=== PATIENT | female | born 1990 | race African-American/Black ===

== ENCOUNTER 2018-10-31 10:34 | Emergency (ER) | payer OTHER ==
[~2018-10-31] VITALS: Ht 165.1 cm; Wt 90.7 kg
[~2018-10-31 10:34] MED LIST: ALPR0.25 PO; METO10TA81 PO; OMEP20TA63 PO; ONDA4TAB10 PO; ONDA4TAB10 SL; ONDA8TAB12 PO; POTA10TA12 PO
[2018-10-31 10:54] VITALS: BP 134/79
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
--- NOTE | 2018-10-31 11:27 | RAD ---
3 view study of the left hand Clinical indications: Puncture wound and swelling of the dorsal aspect of the left hand FINDINGS: Dorsal soft tissue swelling is seen. No soft tissue air or radiopaque foreign body is evident. No acute fracture or dislocation or lytic process is seen. IMPRESSION: Dorsal soft tissue swelling. No acute fracture. Electronically signed by: Jamel Crane MD (10/31/2018 11:24 AM) [facility]
[2018-10-31] MEDS ORDERED: HYDR-3164 PO (11:43)
[2018-10-31] MEDS ORDERED: NEOMY/BACITR/POLYMYXIN OINT PACKET. TP ONE ×2 (11:51→12:30)
[2018-10-31] MEDS ORDERED: BACITRACIN TOPICAL OINT PACKET. TP ONE (12:30)
== END 2018-10-31 11:57 | disposition home or self-care (01) ==
LOC: ER 10:34
DX: S60.222A Contusion of left hand, initial encounter (principal); F31.9 Bipolar disorder, unspecified; F20.9 Schizophrenia, unspecified; Z88.2 Allergy status to sulfonamides; Z88.8 Allergy status to other drugs, medicaments and biological substances; Y04.0XXA Assault by unarmed brawl or fight, initial encounter; Y93.89 Activity, other specified; Y92.89 Other specified places as the place of occurrence of the external cause; Y99.8 Other external cause status
CPT/HCPCS: 73130; 99284

== ENCOUNTER 2019-04-12 06:28 | Emergency (ER) | payer OTHER ==
[~2019-04-12] VITALS: Ht 165.1 cm; Wt 90.0 kg
[~2019-04-12 06:28] MED LIST changes: +HYDR-3164 PO
[2019-04-12 06:40] VITALS: BP 138/94
[2019-04-12] MEDS ORDERED: HYDROcodone/APAP 5/325MG 1 TAB TABLET PO ONE (07:00)
[2019-04-12] MEDS ORDERED: ACETAMINOPHEN 325 MG TABLET. PO ONE (07:00)
--- NOTE | 2019-04-12 07:01 | PHYS DOC ---
Past Medical History Past Medical History: Anxiety, Bipolar, Depression, Schizophrenia, Other Additional Past Medical Histor: palpitations Past Surgical History: , Other Additional Past Surgical Histo: wisdom tooth extraction Alcohol Use: Occasionally Drug Use: None Adult General Chief Complaint Chief Complaint: FLU SYMPTOM [facility] HPI Patient is a 28 year old female with history of schizophrenia, bipolar, anxiety and depression, palpitation who presents with complaint of cough and congestion. Patient complaining of sudden onset of nasal congestion and nonproductive cough that started less than 48 hours ago associated with nausea and chest soreness during episodes of cough,chills and subjective fever, nausea and palpitation. Patient states she gets anxious and feels shortness of breath. 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 Patient denies vomiting, diarrhea, urinary symptoms, . Review of Systems Review of Systems Constitutional: Reports subjective fever and chills Eyes: Denies change in visual acuity, redness, or eye pain [] HENT: Reports nasal congestion and sore throat Respiratory: Coarse cough and shortness of breath Cardiovascular: No additional information not addressed in HPI [] GI: Denies abdominal pain, vomiting, bloody stools or diarrhea marked reports nausea[] : Denies dysuria or hematuria [] Musculoskeletal: Denies back pain or joint pain [] Integument: Denies rash or skin lesions [] Neurologic: Denies headache, focal weakness or sensory changes [] Endocrine: Denies polyuria or polydipsia [] All other systems were reviewed and found to be within normal limits, except as documented in this note. Current Medications Current Medications Current Medications Medications (Trade) Dose Ordered Sig/Bell Start Time Stop Time Status Last Admin Dose Admin Acetaminophen (Tylenol) 650 mg 1X ONCE 04/12/19 07:00 04/12/19 07:01 DC 04/12/19 07:05 650 MG Acetaminophen/ Hydrocodone Bitart (Lortab 5/325) 1 tab 1X ONCE 04/12/19 07:00 04/12/19 07:01 DC 04/12/19 07:05 1 TAB Allergies Allergies Allergies Coded Allergies Type Severity Reaction Last Updated Verified Sulfa (Sulfonamide Antibiotics) Allergy Intermediate HOT FLASHES 11/05/14 No lurasidone Allergy Intermediate HIVES 09/28/15 Yes Physical Exam Physical Exam Constitutional: Well nourished, mild distress, non-toxic appearance, temperature 100.2. [] HENT: Normocephalic, atraumatic, bilateral external ears normal, oropharynx moist, pharyngeal erythema, no oral exudates, nose normal. [] Eyes: PERRLA, EOMI, conjunctiva normal, no discharge. [] Neck: Normal range of motion, no tenderness, supple, no stridor. [] Cardiovascular: Tachycardia, no murmur [] Lungs & Thorax: Bilateral breath sounds clear to auscultation [] Abdomen: Bowel sounds normal, soft, no tenderness, no masses, no pulsatile masses. [] Skin: Warm, dry, no erythema, no rash. [] Back: No tenderness, no CVA tenderness. [] Extremities: No tenderness, no cyanosis, no clubbing, ROM intact, no edema. [] Neurologic: Alert and oriented X 3, normal motor function, normal sensory function, no focal deficits noted. [] Psychologic: Affect anxious, judgement normal, mood normal. [] Current Patient Data Vital Signs Vital Signs Date Time Temp Pulse Resp B/P (MAP) Pulse Ox O2 Delivery O2 Flow Rate FiO2 04/12/19 07:05 20 04/12/19 06:40 100.2 104 138/94 (109) 96 100.2 Lab Values Laboratory Tests Test 04/12/19 06:42 Influenza Type A Antigen Positive (NEGATIVE) Influenza Type B Antigen Negative (NEGATIVE) EKG EKG [] Radiology/Procedures Radiology/Procedures [] Course & Med Decision Making Course & Med Decision Making Pertinent Labs reviewed. (See chart for details) Evaluation of patient showed 28-year-old female patient with flulike symptom less than 48 hours with positive influenza A. Patient felt better with Tylenol and Agenda given in ER. Prescription for Tamiflu was given. I've spoken with the patient and/or caregivers. I've explained the patient's condition, diagnosis and treatment plan based on information available to me at this time. I've answered the patient's and/or caregivers questions and addressed any concerns. The patient and/or caregivers have a good understanding the patient's diagnosis, condition and treatment plan as can be expected at this point. Vital signs have been stabilized. The patient's condition is stable for discharge from the emergency department. The patient will pursue further outpatient evaluation with her primary care provider or other designated consulting physician as outlined in the discharge instructions. Patient and/or caregivers are agreeable to this plan of care and follow-up instructions have been explained in detail. The patient and/or caregivers have received these instructions in written format and expressed understanding of these discharge instructions. The patient and her caregivers are aware that if any significant change in condition or worsening of symptoms should prompt him to immediately return to this of the closest emergency department. If an emergent department is not readily available I would encourage him to call 911. Ana María Disclaimer Dragbrent Disclaimer This electronic medical record was generated, in whole or in part, using a voice recognition dictation system. Departure Departure Impression: Primary Impression: Influenza A Additional Impression: Anxiety Disposition: HOME, SELF-CARE (at 0 [phone]) Condition: IMPROVED Referrals: NO PCP (PCP) Patient Instructions: Anxiety and Panic Attacks, Fever, Adult, Influenza A (H1N1) Additional Instructions: Drink plenty of liquids Follow-up with your primary care physician in 3-5 days Return to ER if not getting better Alternate Tylenol and ibuprofen every 4 hours as needed for fever and pain Thank you for visiting [facility]. We appreciate you trusting us with your care. If any additional problems come up don't hesitate to return to visit us. Please follow up with your primary care provider so they can plan additional care if needed and know about the problem that you had. If symptoms worsen come back to the Emergency Department. Any concerning symptoms that start such as chest pain, shortness of air, weakness or numbness on one side of the body, running high fevers or any other concerning symptoms return to the ER. Scripts Benzonatate (TESSALON PERLE) 100 Mg Capsule 1 CAP PO TID for cough, #21 CAP Prov: BRYON MORIN MD 04/12/19 Oseltamivir Phosphate (TAMIFLU) 75 Mg Capsule 1 CAP PO BID, #10 CAP Prov: BRYON MORIN MD 04/12/19 Hydrocodone/Apap 5-325 (NORCO 5-325 TABLET) 1 Each Tablet 1 TAB PO PRN Q6HRS PRN for PAIN, #12 TAB 0 Refills Prov: BRYON MORIN MD 04/12/19 Problem Qualifiers BRYON MORIN MD Apr 12, 2019 07:01
[2019-04-12 07:21] LABS: INFLUENZA A PATIENT POSITIVE (NEGATIVE); INFLUENZA B PATIENT NEGATIVE (NEGATIVE)
[2019-04-12] MEDS ORDERED: HYDR-3164 PO (07:26)
[2019-04-12] MEDS ORDERED: OSEL75CA PO (07:26)
[2019-04-12] MEDS ORDERED: BENZ100C PO (07:26)
== END 2019-04-12 07:32 | disposition home or self-care (01) ==
LOC: ER 06:28
DX: J10.1 Influenza due to other identified influenza virus with other respiratory manifestations (principal); R11.0 Nausea; R00.2 Palpitations; R07.89 Other chest pain; F41.9 Anxiety disorder, unspecified; F32.9 Major depressive disorder, single episode, unspecified; F20.9 Schizophrenia, unspecified; Z98.890 Other specified postprocedural states; Z88.4 Allergy status to anesthetic agent
CPT/HCPCS: 87804; 99284

== ENCOUNTER 2019-07-05 03:20 | Emergency (ER) | payer OTHER ==
[~2019-07-05] VITALS: Ht 165.1 cm; Wt 86.4 kg
[~2019-07-05 03:20] MED LIST changes: +BENZ100C PO; +OSEL75CA PO
[2019-07-05] MEDS ORDERED: fentaNYL PF VIAL 100 MCG/2 ML VIAL IVP ONE (03:30)
[2019-07-05] MEDS ORDERED: ONDANSETRON PF 4 MG/2 ML VIAL. IVP ONE (03:30)
--- NOTE | 2019-07-05 03:35 | PHYS DOC ---
Past Medical History Past Medical History: Anxiety, Bipolar, Depression, Schizophrenia, Other Additional Past Medical Histor: palpitations Past Surgical History: , Other Additional Past Surgical Histo: wisdom tooth extraction Smoking Status: Never Smoker Alcohol Use: Occasionally Drug Use: None General Adult EDM: Chief Complaint: HEAD, FACE, NECK, TRAUMA HPI: HPI: Patient is a 28 year old female who presents after falling 1 going down stairs at home. Patient indicates that she had been sleepwalking and was about retirement down stairs when she woke up and fell. Patient states that she hit the back of her head and now has head, neck and jaw pain. A shunt rates pain at a 9 out of 10. She denies any loss of consciousness. Patient states that pain is worsened in her neck with movement. She denies any back or extremity pain. Patient states that fall occurred about 1:30 AM.[] Review of Systems: Review of Systems: Constitutional: Denies fever or chills. [] Eyes: Denies change in visual acuity. [] Respiratory: Denies cough or shortness of breath. [] Cardiovascular: Denies chest pain or edema. [] GI: Denies abdominal pain, nausea, vomiting or diarrhea. [] Musculoskeletal: Complains of neck and jaw pain. [] Neurologic: Complains of headache without focal weakness or sensory changes. [] A full 10 point review of systems has been reviewed and is otherwise negative. Heart Score: Risk Factors: Risk Factors: DM, Current or recent (<one month) smoker, HTN, HLP, family history of CAD, obesity. Risk Scores: Score 0 - 3: 2.5% MACE over next 6 weeks - Discharge Home Score 4 - 6: 20.3% MACE over next 6 weeks - Admit for Clinical Observation Score 7 - 10: 72.7% MACE over next 6 weeks - Early Invasive Strategies Current Medications: Current Medications Medications (Trade) Dose Ordered Sig/Bell Start Time Stop Time Status Last Admin Dose Admin Fentanyl Citrate (Fentanyl 2ml Vial) 50 mcg 1X ONCE 07/05/19 03:30 07/05/19 03:31 Ondansetron HCl (Zofran) 4 mg 1X ONCE 07/05/19 03:30 07/05/19 03:31 Allergies: Allergies: Allergies Coded Allergies Type Severity Reaction Last Updated Verified Sulfa (Sulfonamide Antibiotics) Allergy Intermediate HOT FLASHES 11/05/14 No lurasidone Allergy Intermediate HIVES 09/28/15 Yes Physical Exam: PE: Constitutional: Well developed, well nourished, no acute distress, non-toxic appearance. [] HENT: Normocephalic, with hematoma noted to the right parieto-occipital region of scalp, bilateral external ears normal, oropharynx moist, no oral exudates, nose normal. [] Eyes: PERRLA, EOMI, conjunctiva normal, no discharge. [] Neck: Normal range of motion, with bilateral suboccipital tenderness, supple, no stridor. [] Cardiovascular: Regular rate and rhythm[] Lungs & Thorax: Bilateral breath sounds clear to auscultation [] Abdomen: Bowel sounds normal, soft, no tenderness. [] Skin: Warm, dry, no erythema, no rash. [] Back: No tenderness, no CVA tenderness. [] Extremities: No tenderness, no cyanosis, no clubbing, ROM intact, no edema. [] Neurologic: Alert and oriented X 3, no focal deficits noted. [] EKG: EKG: [] Radiology/Procedures: Radiology/Procedures: [] Impression: PROCEDURE: CT HEAD AND CERVICAL SPINE WO CT head without contrast. Maxillofacial CT without contrast. CT cervical spine without contrast. HISTORY: Trauma, laceration, pain. CT head findings: No intracranial hemorrhage, mass, hydrocephalus or infarction. There is a right parietal occipital scalp laceration with underlying 2 cm thickness soft tissue hematoma. Maxillary sinus fluid and opacification. Mild fluid sphenoid sinuses. Skull base and calvarium intact. Orbits and mastoids intact. IMPRESSION: No acute intracranial CT abnormality. Scalp laceration and hematoma. No skull fracture. Maxillofacial CT findings: Fluid opacification maxillary sinuses. Mild mucosal thickening sphenoid sinuses. Facial bones intact. Maxilla, mandible and orbits intact. No orbital edema or hematoma. IMPRESSION: Facial bones intact. Fluid within the maxillary sinuses could indicate sinusitis. CT cervical spine findings: Craniocervical junction intact. Cervical vertebral body height and alignment intact. No fracture of the cervical spine. Lung apices and paraspinal tissues are unremarkable. IMPRESSION: No acute osseous injury of the cervical spine. Exposure: One or more of the following individualized dose reduction techniques were utilized for this examination: 1. Automated exposure control 2. Adjustment of the mA and/or kV according to patient size 3. Use of iterative reconstruction technique Electronically signed by: Austin Burks MD (07/05/2019 4:11 AM) [id number] DICTATED and SIGNED BY: AUSTIN BURKS MD DATE: 07/05/19 0411 Course & Med Decision Making: Course & Med Decision Making Pertinent Labs and Imaging studies reviewed. (See chart for details) [] Dragon Disclaimer: Dragon Disclaimer: This electronic medical record was generated, in whole or in part, using a voice recognition dictation system. Departure Departure Impression: Primary Impression: Head injury Qualified Codes: S09.90XA - Unspecified injury of head, initial encounter Additional Impressions: Cervical sprain Qualified Codes: S13.9XXA - Sprain of joints and ligaments of unspecified parts of neck, initial encounter Scalp hematoma Qualified Codes: S00.03XA - Contusion of scalp, initial encounter Disposition: HOME, SELF-CARE Condition: STABLE Referrals: NO PCP (PCP) Patient Instructions: Cervical Sprain, Head Injury, Adult, Scalp Hematoma Scripts Orphenadrine Citrate (ORPHENADRINE CITRATE) 100 Mg Tablet.er 1 TAB PO BID PRN for MUSCLE SPASMS, #14 TAB Prov: GABBIE EDMOND Jr. DO 07/05/19 Hydrocodone/Apap 5-325 (NORCO 5-325 TABLET) 1 Each Tablet 1-2 EACH PO PRN Q6HRS PRN for PAIN, #15 as needed for pain Prov: GABBIE EDMOND Jr. DO 07/05/19 GABBIE EDMOND Jr. DO Jul 05, 2019 03:35
--- NOTE | 2019-07-05 04:14 | RAD ---
CT head without contrast. Maxillofacial CT without contrast. CT cervical spine without contrast. HISTORY: Trauma, laceration, pain. CT head findings: No intracranial hemorrhage, mass, hydrocephalus or infarction. There is a right parietal occipital scalp laceration with underlying 2 cm thickness soft tissue hematoma. Maxillary sinus fluid and opacification. Mild fluid sphenoid sinuses. Skull base and calvarium intact. Orbits and mastoids intact. IMPRESSION: No acute intracranial CT abnormality. Scalp laceration and hematoma. No skull fracture. Maxillofacial CT findings: Fluid opacification maxillary sinuses. Mild mucosal thickening sphenoid sinuses. Facial bones intact. Maxilla, mandible and orbits intact. No orbital edema or hematoma. IMPRESSION: Facial bones intact. Fluid within the maxillary sinuses could indicate sinusitis. CT cervical spine findings: Craniocervical junction intact. Cervical vertebral body height and alignment intact. No fracture of the cervical spine. Lung apices and paraspinal tissues are unremarkable. IMPRESSION: No acute osseous injury of the cervical spine. Exposure: One or more of the following individualized dose reduction techniques were utilized for this examination: 1. Automated exposure control 2. Adjustment of the mA and/or kV according to patient size 3. Use of iterative reconstruction technique Electronically signed by: Austin Burks MD (07/05/2019 4:11 AM) [id number]
[2019-07-05] MEDS ORDERED: LIDOCAINE 2% 20 ML VIAL. ONE (04:30)
[2019-07-05] MEDS ORDERED: LIDOCAINE 2%/EPI 1:100,000 20 ML VIAL. IJ ONE (04:30)
[2019-07-05] MEDS ORDERED: GELATIN SPONGE SIZE 12-7MM SPONGE. TP ONE (05:00)
[2019-07-05] MEDS ORDERED: ORPH100T PO (05:07)
[2019-07-05] MEDS ORDERED: HYDR-3164 PO (05:07)
[2019-07-05 05:10] VITALS: BP 119/67
[2019-07-05] MEDS ORDERED: HYDROcodone/APAP 7.5/325MG 1 TAB TABLET PO ONE (05:15)
== END 2019-07-05 05:13 | disposition home or self-care (01) ==
LOC: ER 03:20
DX: S13.9XXA Sprain of joints and ligaments of unspecified parts of neck, initial encounter (principal); S00.03XA Contusion of scalp, initial encounter; R51 Headache; R68.84 Jaw pain; F31.9 Bipolar disorder, unspecified; F20.9 Schizophrenia, unspecified; Z88.2 Allergy status to sulfonamides; Z88.8 Allergy status to other drugs, medicaments and biological substances; W10.8XXA Fall (on) (from) other stairs and steps, initial encounter; Y93.89 Activity, other specified; Y92.098 Other place in other non-institutional residence as the place of occurrence of the external cause; Y99.8 Other external cause status
CPT/HCPCS: 70450; 70486; 72125; 96372; 96374; 96375; 99285; J2405; J3010; J3490

== ENCOUNTER 2019-08-19 05:47 | Emergency (ER) | payer OTHER ==
[~2019-08-19] VITALS: Ht 165.1 cm; Wt 86.4 kg
[~2019-08-19 05:47] MED LIST changes: +ORPH100T PO
[2019-08-19] MEDS ORDERED: IV NORMAL SALINE 1000ML BAG 1,000 ML IV ONE (06:30)
[2019-08-19] MEDS ORDERED: ONDANSETRON PF 4 MG/2 ML VIAL. IV ONE (06:45)
[2019-08-19] MEDS ORDERED: KETOROLAC 30 MG/ML VIAL. IV ONE (06:45)
[2019-08-19 06:49] LABS: BILIRUBIN,URINE NEGATIVE (NEG); CLARITY,URINE CLEAR; COLOR,URINE YELLOW; NITRITE,URINE NEGATIVE (NEG); PH,URINE 5.5 (<5.0-8.0); PROTEIN,URINE 30 mg/dL (NEG-TRACE)
[2019-08-19 07:00] LABS: CALCIUM 8.2 mg/dL (8.5-10.1); GFR 78.8; POTASSIUM 3.3 mmol/L (3.5-5.1)
[2019-08-19] MEDS ORDERED: IOHEXOL 300 MG/ML 100ML VIAL. IV ONE (07:00)
[2019-08-19 07:06] LABS: ALBUMIN 3.4 g/dL (3.4-5.0); ALBUMIN/GLOBULIN RATIO 0.9 (1.0-1.7); TOTAL BILIRUBIN 0.3 mg/dL (0.2-1.0); TOTAL PROTEIN 7.1 g/dL (6.4-8.2)
[2019-08-19] MEDS ORDERED: CONTRAST GIVEN. MC PRN (07:15)
[2019-08-19 07:19] LABS: BACTERIA,URINE 0 /HPF (0-FEW); RBC,URINE 0 /HPF (0-2); SQUAMOUS EPITHELIAL CELL,UR MOD /LPF; WBC,URINE 0 /HPF (0-4)
[2019-08-19 07:32] LABS: BASO # 0.1 x10^3/uL (0.0-0.2); BASO % 1 % (0-3); EOS # 0.2 x10^3/uL (0.0-0.7); EOS % 2 % (0-3); HEMATOCRIT 29.8 % (36.0-47.0); HEMOGLOBIN 9.5 g/dL (12.0-15.5); LYMPH # 2.4 x10^3/uL (1.0-4.8); LYMPH % 35 % (24-48); MEAN CORPUSCULAR HEMOGLOBIN 23 pg (25-35); MEAN CORPUSCULAR HGB CONC 32 g/dL (31-37); MEAN CORPUSCULAR VOLUME 73 fL (79-100); MONO # 0.6 x10^3/uL (0.0-1.1); MONO % 8 % (0-9); NEUT # 3.7 x10^3/uL (1.8-7.7); NEUT % 53 % (31-73); PLATELET COUNT 265 x10^3/uL (140-400); RED BLOOD COUNT 4.09 x10^6/uL (3.50-5.40); WHITE BLOOD COUNT 6.9 x10^3/uL (4.0-11.0)
--- NOTE | 2019-08-19 07:58 | PHYS DOC ---
Past Medical History Past Medical History: No Pertinent History Past Surgical History: , Tubal ligation Smoking Status: Current Some Day Smoker Alcohol Use: Occasionally General Adult EDM: Chief Complaint: ABDOMINAL PAIN HPI: HPI: Patient is a 29-year-old otherwise healthy female who states she was at work this morning and doubled over in pain. She describes the pain as severe sharp and stabbing. Tender lower abdomen radiating to her right lower quadrant. She was unable to get comfortable. This happened approximately an hour or so prior to arrival. Her employer was concerned that she may have appendicitis. Patient denies any pain fever chills or sweats fever chills or sweats. She denies any vaginal bleeding or discharge. She has had no nausea or vomiting.] Review of Systems: Review of Systems: Constitutional: Denies fever or chills. [] Eyes: Denies change in visual acuity. [] HENT: Denies nasal congestion or sore throat. [] Respiratory: Denies cough or shortness of breath. [] Cardiovascular: Denies chest pain or edema. [] GI: Per HPI. [] : Denies dysuria. [] Musculoskeletal: Denies back pain or joint pain. [] Integument: Denies rash. [] Neurologic: Denies headache, focal weakness or sensory changes. [] Endocrine: Denies polyuria or polydipsia. [] Lymphatic: Denies swollen glands. [] Psychiatric: Denies depression or anxiety. [] Heart Score: Risk Factors: Risk Factors: DM, Current or recent (<one month) smoker, HTN, HLP, family history of CAD, obesity. Risk Scores: Score 0 - 3: 2.5% MACE over next 6 weeks - Discharge Home Score 4 - 6: 20.3% MACE over next 6 weeks - Admit for Clinical Observation Score 7 - 10: 72.7% MACE over next 6 weeks - Early Invasive Strategies Current Medications: Current Medications Medications (Trade) Dose Ordered Sig/Bell Start Time Stop Time Status Last Admin Dose Admin Info (CONTRAST GIVEN -- Rx MONITORING) 1 each PRN DAILY PRN 08/19/19 07:15 08/21/19 07:14 Iohexol (Omnipaque 300 Mg/ml) 75 ml 1X ONCE 08/19/19 07:00 08/19/19 07:07 DC Ketorolac Tromethamine (Toradol 30mg Vial) 30 mg 1X ONCE 08/19/19 06:45 08/19/19 06:46 DC 08/19/19 06:43 30 MG Ondansetron HCl (Zofran) 4 mg 1X ONCE 08/19/19 06:45 08/19/19 06:46 DC 08/19/19 06:43 4 MG Sodium Chloride 1,000 ml @ 1,000 mls/hr 1X ONCE 08/19/19 06:30 08/19/19 07:29 DC 08/19/19 06:44 1,000 MLS/HR Allergies: Allergies: Allergies Coded Allergies Type Severity Reaction Last Updated Verified Sulfa (Sulfonamide Antibiotics) Allergy Intermediate HOT FLASHES 11/05/14 No lurasidone Allergy Intermediate HIVES 09/28/15 Yes Physical Exam: PE: Constitutional: Well developed, well nourished, mild distress, non-toxic appearance. [] HENT: Normocephalic, atraumatic, bilateral external ears normal, oropharynx moist, no oral exudates, nose normal. [] Eyes: PERRLA, EOMI, conjunctiva normal, no discharge. [] Neck: Normal range of motion, no tenderness, supple, no stridor. [] Cardiovascular:Heart rate regular rhythm, no murmur [] Lungs & Thorax: Bilateral breath sounds clear to auscultation [] Abdomen: Soft she is tender to palp in the right lower quadrant no rebound or guarding negative McBurney's [] Skin: Warm, dry, no erythema, no rash. [] Back: No tenderness, no CVA tenderness. [] Extremities: No tenderness, no cyanosis, no clubbing, ROM intact, no edema. [] Neurologic: Alert and oriented X 3, normal motor function, normal sensory function, no focal deficits noted. [] Psychologic: Anxious. [] Current Patient Data: Labs: Laboratory Tests Test 08/19/19 05:50 08/19/19 05:55 08/19/19 06:38 Urine Collection Type Unknown Urine Color Yellow Urine Clarity Clear Urine pH 5.5 (<5.0-8.0) Urine Specific Warren >=1.030 (1.000-1.030) Urine Protein 30 mg/dL (NEG-TRACE) Urine Glucose (UA) Negative mg/dL (NEG) Urine Ketones (Stick) Negative mg/dL (NEG) Urine Blood Large (NEG) Urine Nitrite Negative (NEG) Urine Bilirubin Negative (NEG) Urine Urobilinogen Dipstick 1.0 mg/dL (0.2 mg/dL) Urine Leukocyte Esterase Negative (NEG) Urine RBC 0 /HPF (0-2) Urine WBC 0 /HPF (0-4) Urine Squamous Epithelial Cells Mod /LPF Urine Bacteria 0 /HPF (0-FEW) Urine Mucus Marked /LPF POC Urine HCG, Qualitative Hcg negative (Negative) White Blood Count 6.9 x10^3/uL (4.0-11.0) Red Blood Count 4.09 x10^6/uL (3.50-5.40) Hemoglobin 9.5 g/dL (12.0-15.5) L Hematocrit 29.8 % (36.0-47.0) L Mean Corpuscular Volume 73 fL (79-100) L Mean Corpuscular Hemoglobin 23 pg (25-35) L Mean Corpuscular Hemoglobin Concent 32 g/dL (31-37) Red Cell Distribution Width 20.0 % (11.5-14.5) H Platelet Count 265 x10^3/uL (140-400) Neutrophils (%) (Auto) 53 % (31-73) Lymphocytes (%) (Auto) 35 % (24-48) Monocytes (%) (Auto) 8 % (0-9) Eosinophils (%) (Auto) 2 % (0-3) Basophils (%) (Auto) 1 % (0-3) Neutrophils # (Auto) 3.7 x10^3/uL (1.8-7.7) Lymphocytes # (Auto) 2.4 x10^3/uL (1.0-4.8) Monocytes # (Auto) 0.6 x10^3/uL (0.0-1.1) Eosinophils # (Auto) 0.2 x10^3/uL (0.0-0.7) Basophils # (Auto) 0.1 x10^3/uL (0.0-0.2) Sodium Level 142 mmol/L (136-145) Potassium Level 3.3 mmol/L (3.5-5.1) L Chloride Level 107 mmol/L (98-107) Carbon Dioxide Level 27 mmol/L (21-32) Anion Gap 8 (6-14) Blood Urea Nitrogen 16 mg/dL (7-20) Creatinine 1.0 mg/dL (0.6-1.0) Estimated GFR (Cockcroft-Gault) 78.8 BUN/Creatinine Ratio 16 (6-20) Glucose Level 103 mg/dL (70-99) H Calcium Level 8.2 mg/dL (8.5-10.1) L Total Bilirubin 0.3 mg/dL (0.2-1.0) Aspartate Amino Transferase (AST) 18 U/L (15-37) Alanine Aminotransferase (ALT) 20 U/L (14-59) Alkaline Phosphatase 53 U/L (46-116) Total Protein 7.1 g/dL (6.4-8.2) Albumin 3.4 g/dL (3.4-5.0) Albumin/Globulin Ratio 0.9 (1.0-1.7) L Lipase 172 U/L (73-393) Laboratory Tests 08/19/19 06:38 Laboratory Tests 08/19/19 06:38 Vital Signs: Vital Signs Date Time Temp Pulse Resp B/P (MAP) Pulse Ox O2 Delivery O2 Flow Rate FiO2 08/19/19 06:45 81 16 126/81 (96) 99 Room Air 08/19/19 06:08 98.5 98.5 EKG: EKG: [] Radiology/Procedures: Radiology/Procedures: [CT scan: Negative exam as interpreted by the radiologist] Course & Med Decision Making: Course & Med Decision Making Pertinent Labs and Imaging studies reviewed. (See chart for details) [] Dragon Disclaimer: Dragon Disclaimer: This electronic medical record was generated, in whole or in part, using a voice recognition dictation system. Departure Departure Impression: Primary Impression: Pain, abdominal, nonspecific Disposition: HOME, SELF-CARE Condition: STABLE Referrals: NO PCP (PCP) Patient Instructions: Abdominal Pain Scripts Naproxen (NAPROXEN) 500 Mg Tablet 1 TAB PO BID PRN for PAIN, #30 TAB 1 Refill Prov: LACHO MADRIGAL DO 08/19/19 LACHO MADRIGAL DO Aug 19, 2019 07:58
[2019-08-19 08:45] VITALS: BP 134/74
[2019-08-19] MEDS ORDERED: NAPR-514 PO (08:53)
--- NOTE | 2019-08-19 09:21 | RAD ---
CT SCAN OF THE ABDOMEN AND PELVIS WITH IV CONTRAST. History: Right lower quadrant abdominal pain and rectal bleeding for one week. Comparison:Contrast-enhanced abdomen and pelvis CT of 03/10/2014 and OB ultrasound of 09/28/2015.. Procedure: Contiguous axial images of the abdomen and pelvis were performed after the administration of 75 cc of Omnipaque 300 IV contrast , no oral contrast. CT Abdomen with contrast: Findings: Lung bases are clear. Liver: Unremarkable Spleen: Unremarkable Pancreas: Unremarkable Adrenal Glands: Unremarkable Kidneys: Unremarkable There is no mass or lymphadenopathy. No free air or free fluid.. Impression: No acute findings in the abdomen. See also same day Pelvis CT report. End Impression CT Pelvis with Contrast: Findings: The urinary bladder appears normal. There is no free fluid. There is no lymphadenopathy. Pelvic structures show normal-appearing uterus and similar appearing right ovary compared with a prior CT scan. It abuts a small bowel loop in the right lower quadrant pelvis, making accurate measurement difficult to assess on CT. Right ovary was not well seen on the previous ultrasound.The appendix however is normal. There are no findings of bowel obstruction, perforation or acute inflammation. Linear density along the lumen of a small bowel loop best appreciated on axial image 62 of series 2 on slice position 305 is favored to represent artifact of undissolved ingested material. The osseous structures are unremarkable. Impression: No acute findings in the pelvis. In particular, there is no evidence of acute appendicitis. Given the absence of acute inflammatory changes (or evidence of sequelae of chronic inflammatory changes) in the bowel and the recurrent symptoms of right lower quadrant pain and gastrointestinal bleeding, a follow-up nuclear medicine study such as a Meckel scan could be considered if a Meckel's diverticulum is clinically suspected. Alternatively, a GI bleeding scan could be pursued if a specific source is not already suspected. Either examination could be performed on an outpatient, elective basis. Discussed with Dr. Walters by telephone at approximately 8:49 AM on 09/15/2019. PQRS Compliance Statement: One or more of the following individualized dose reduction techniques were utilized for this examination: 1. Automated exposure control 2. Adjustment of the mA and/or kV according to patient size 3. Use of iterative reconstruction technique
== END 2019-08-19 09:15 | disposition home or self-care (01) ==
LOC: ER 05:47 → MERGE 05:47 → ER 09:15
DX: R10.31 Right lower quadrant pain (principal); F17.200 Nicotine dependence, unspecified, uncomplicated; Z98.51 Tubal ligation status; Z88.2 Allergy status to sulfonamides; Z88.8 Allergy status to other drugs, medicaments and biological substances
CPT/HCPCS: 36415; 74177; 80053; 81001; 81025; 83690; 85025; 96374; 96375; 99285; J1885; J2405; J7030; Q9967